=== PATIENT | female | born 1995 | race African-American/Black ===

== ENCOUNTER 2020-10-01 10:25 | Outpatient (CLI) | payer OTHER | END 2020-10-01 11:30 | disposition home or self-care (01) | LOC: PRENATAL 10:25 | PROVIDERS: ATTEND Obstetrics & Gynecology Maternal & Fetal Medicine | DX: O35.0XX1 Maternal care for (suspected) central nervous system malformation in fetus, fetus 1 (principal); O35.3XX1 Maternal care for (suspected) damage to fetus from viral disease in mother, fetus 1; O98.512 Other viral diseases complicating pregnancy, second trimester; Z36.89 Encounter for other specified antenatal screening; Z3A.20 20 weeks gestation of pregnancy ==

== ENCOUNTER 2020-11-05 12:38 | Emergency (ER) | payer OTHER ==
[~2020-11-05] VITALS: Ht 165.1 cm; Wt 76.2 kg
[2020-11-05] MEDS ORDERED: PRENATABS RX T1 EACH PO (12:46)
== END 2020-11-05 17:19 | disposition home or self-care (01) ==
LOC: ER 12:38
DX: K29.70 Gastritis, unspecified, without bleeding (principal); Z3A.26 26 weeks gestation of pregnancy; R11.2 Nausea with vomiting, unspecified

== ENCOUNTER 2021-02-03 13:28 | Outpatient (CLI) | payer OTHER ==
[~2021-02-03 13:28] MED LIST: PRENATABS RX T1 EACH PO
== END 2021-02-03 14:28 | disposition home or self-care (01) ==
LOC: PRENATAL 13:28
PROVIDERS: ATTEND Obstetrics & Gynecology Maternal & Fetal Medicine
DX: O26.843 Uterine size-date discrepancy, third trimester (principal); O36.8131 Decreased fetal movements, third trimester, fetus 1; O36.5931 Maternal care for other known or suspected poor fetal growth, third trimester, fetus 1; Z36.89 Encounter for other specified antenatal screening; Z3A.36 36 weeks gestation of pregnancy

== ENCOUNTER 2021-02-04 17:28 | Inpatient (IN) | payer OTHER ==
[~2021-02-04] VITALS: Ht 165.1 cm; Wt 2.3 kg
== END 2021-02-08 11:56 | disposition home or self-care (01) | DRG 788 ==
LOC: LDR 17:28 → O/R 17:28 → OB/GYN 02-05 16:07
PROVIDERS: ADMIT Obstetrics & Gynecology; ATTEND Obstetrics & Gynecology
PROC: 4A0HXFZ Measurement of Products of Conception, Cardiac Rhythm, External Approach (ICD-10-PCS; 2021-02-04)
PROC: 3E033VJ Introduction of Other Hormone into Peripheral Vein, Percutaneous Approach (ICD-10-PCS; 2021-02-04)
PROC: 10D00Z1 Extraction of Products of Conception, Low, Open Approach (ICD-10-PCS; principal; 2021-02-05 13:00)
DX: O36.5930 Maternal care for other known or suspected poor fetal growth, third trimester, not applicable or unspecified (principal); O61.0 Failed medical induction of labor; O69.81X0 Labor and delivery complicated by cord around neck, without compression, not applicable or unspecified; Z3A.38 38 weeks gestation of pregnancy; Z37.0 Single live birth; Z20.822 Contact with and (suspected) exposure to COVID-19

== ENCOUNTER 2021-09-11 02:55 | Emergency (ER) | payer OTHER ==
[~2021-09-11] VITALS: Ht 165.1 cm; Wt 83.9 kg
[2021-09-11] MEDS ORDERED: TYLENOL EXTRA500 MG PO (05:56)
[2021-09-11] MEDS ORDERED: ORPHENADRINE C100 MG PO (05:56)
== END 2021-09-11 05:59 ==
LOC: ER 02:55
DX: O26.891 Other specified pregnancy related conditions, first trimester (principal); Z3A.08 8 weeks gestation of pregnancy; M54.50 Low back pain, unspecified

== ENCOUNTER 2021-12-01 12:18 | Outpatient (CLI) | payer OTHER ==
[~2021-12-01 12:18] MED LIST changes: +ORPHENADRINE C100 MG PO; +TYLENOL EXTRA500 MG PO
== END 2021-12-01 15:30 | disposition home or self-care (01) ==
LOC: PRENATAL 12:18
PROVIDERS: ATTEND Obstetrics & Gynecology Maternal & Fetal Medicine
DX: O35.9XX0 Maternal care for (suspected) fetal abnormality and damage, unspecified, not applicable or unspecified (principal); O35.3XX0 Maternal care for (suspected) damage to fetus from viral disease in mother, not applicable or unspecified; O34.219 Maternal care for unspecified type scar from previous cesarean delivery; Z3A.20 20 weeks gestation of pregnancy

== ENCOUNTER 2022-02-25 11:08 | Outpatient (CLI) | payer OTHER | END 2022-02-25 11:40 | disposition home or self-care (01) | LOC: PRENATAL 11:08 | PROVIDERS: ATTEND Obstetrics & Gynecology Maternal & Fetal Medicine | DX: O36.8199 Decreased fetal movements, unspecified trimester, other fetus (principal); O34.219 Maternal care for unspecified type scar from previous cesarean delivery; Z3A.32 32 weeks gestation of pregnancy ==

== ENCOUNTER 2022-04-06 11:45 | Inpatient (IN) | payer OTHER ==
[~2022-04-06] VITALS: Ht 165.1 cm; Wt 100.7 kg
== END 2022-04-10 16:36 | disposition home or self-care (01) | DRG 785 ==
LOC: OB/GYN 04-08 11:45 → O/R 04-08 12:19 → OB/GYN 04-08 13:00
PROVIDERS: ADMIT Obstetrics & Gynecology; ATTEND Obstetrics & Gynecology
PROC: 0UB70ZZ Excision of Bilateral Fallopian Tubes, Open Approach (ICD-10-PCS; 2022-04-08)
PROC: 4A1HXCZ Monitoring of Products of Conception, Cardiac Rate, External Approach (ICD-10-PCS; 2022-04-08)
PROC: 10D00Z1 Extraction of Products of Conception, Low, Open Approach (ICD-10-PCS; principal; 2022-04-08 13:00)
DX: O34.211 Maternal care for low transverse scar from previous cesarean delivery (principal); Z3A.39 39 weeks gestation of pregnancy; Z37.0 Single live birth; Z20.822 Contact with and (suspected) exposure to COVID-19; Z30.2 Encounter for sterilization